=== PATIENT | male | born 1935 | race Caucasian/White ===

== ENCOUNTER 2018-10-23 10:06 | Emergency (ER) | payer MEDICARE, OTHER ==
[~2018-10-23] VITALS: Ht 180.3 cm; Wt 86.5 kg
--- NOTE | 2018-10-23 10:44 | NUR ---
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 STEADY UPON AMBULATION TO DC DESK.
--- NOTE | 2018-10-23 10:50 | NUR ---
PT C/O LLQ ABD PAIN WHERE OSTOMY IS LOCATED. PT REPORTS DECREASED OUTPUT SINCE LAST NOC WHEN IT WAS EMPTIED. PT ONLY HAD TOAST AT 0700. PT HAS HX OF COLRECTAL CA, CA FREE FOR 6 YEARS. PT HAS POWERPORT ON RIGHT SIDE OF CHEST. CHART UP FOR MD. +NAUSEA, NO VOMITING.
[2018-10-23] MEDS ORDERED: UNKNOWN BP MED PO (10:54)
--- NOTE | 2018-10-23 11:50 | NUR ---
IV STARTED. PT UPDATED ON POC. WAITING FOR LAB RESULTS PRIOR TO CT.
[2018-10-23 12:22] LABS: BASOPHILS # (AUTO) 0.01 x10^3/uL (0-0.1); BASOPHILS % (AUTO) 0 % (0-1); EOSINOPHILS # (AUTO) 0.01 x10^3/uL (0-0.4); EOSINOPHILS % (AUTO) 0 % (1-7); LYMPHOCYTES # (AUTO) 0.37 x10^3/uL (1-3.4); LYMPHOCYTES % (AUTO) 3 % (22-44); MD NO; MEAN CORPUSCULAR HEMOGLOBIN 32.3 pg (27.5-34.5); MEAN CORPUSCULAR VOLUME 97.7 fL (81-97); MEAN PLATELET VOLUME 8.1 fL (7.4-10.4); MONOCYTES # (AUTO) 0.66 x10^3/uL (0.2-0.8); MONOCYTES % (AUTO) 5 % (2-9); NEUTROPHILS # (AUTO) 13.65 x10^3/uL (1.8-6.8); NEUTROPHILS % (AUTO) 93 % (42-75); PLATELET COUNT 194 x10^3/uL (130-400); RED BLOOD COUNT 4.28 x10^6/uL (4.38-5.82); RED CELL DISTRIBUTION WIDTH 13.6 % (9.4-14.8)
[2018-10-23 12:27] LABS: ALANINE AMINOTRANSFERASE 23 U/L (12-78); ALBUMIN 3.8 g/dL (3.4-5.0); ANION GAP 8 mmol/L (5-15); CALCIUM 9.4 mg/dL (8.5-10.1); CHLORIDE 112 mmol/L (98-107); CREATININE 1.74 mg/dL (0.7-1.3)
[2018-10-23 12:31] LABS: ALKALINE PHOSPHATASE 83 U/L (45-117); TOTAL PROTEIN 8.1 g/dL (6.4-8.2); TROPONIN I < 0.015 ng/mL (0.000-0.045)
--- NOTE | 2018-10-23 13:04 | NUR ---
CT CALLED AND NOTIFIED OF PT'S CREATININE BEING TOO HIGH FOR CONTRAST. DR. RUTH TO REOEDER WITHOUT CONTRAST.
--- NOTE | 2018-10-23 13:23 | NUR ---
PT TO CT.
[2018-10-23] MEDS ORDERED: SODIUM CHLORIDE 0.9% 1,000ML IVBOLUS ONE (13:30)
[2018-10-23 14:38] VITALS: BP 129/85
== END 2018-10-23 14:41 | disposition home or self-care (01) ==
LOC: ED 11:34
DX: N13.2 Hydronephrosis with renal and ureteral calculous obstruction (principal); R10.12 Left upper quadrant pain; R10.32 Left lower quadrant pain; Z85.038 Personal history of other malignant neoplasm of large intestine
CPT/HCPCS: 36415; 71045; 74176; 80053; 83605; 83690; 84484; 85025; 93005; 99284; J7030

== ENCOUNTER 2018-12-13 07:13 | Emergency (ER) | payer MEDICARE, OTHER ==
[~2018-12-13] VITALS: Ht 185.4 cm; Wt 85.6 kg
[2018-12-13 07:24] VITALS: BP 127/67
== END 2018-12-13 08:05 | disposition home or self-care (01) ==
LOC: ED 08:00
DX: L03.116 Cellulitis of left lower limb (principal); M79.671 Pain in right foot
CPT/HCPCS: 99283

== ENCOUNTER → 2019-07-06 | Outpatient (CLI) | payer MEDICARE, OTHER ==
[~2019-07-06] MED LIST: LISI5TAB7 PO; UNKNOWN BP MED PO
== END | disposition home or self-care (01) ==
LOC: CFH 13:35
PROVIDERS: ATTEND Internal Medicine Hematology & Oncology
DX: C18.9 Malignant neoplasm of colon, unspecified (principal); I82.402 Acute embolism and thrombosis of unspecified deep veins of left lower extremity; I82.502 Chronic embolism and thrombosis of unspecified deep veins of left lower extremity; R22.43 Localized swelling, mass and lump, lower limb, bilateral

== ENCOUNTER 2020-02-15 10:21 | Outpatient (CLI) | payer MEDICARE, OTHER | END 2020-02-15 23:59 | disposition home or self-care (01) | LOC: CFH 10:21 | PROVIDERS: ATTEND Internal Medicine | DX: N20.0 Calculus of kidney (principal); I71.4 Abdominal aortic aneurysm, without rupture; N18.3 Chronic kidney disease, stage 3 (moderate) | CPT/HCPCS: 76770 ==

== ENCOUNTER 2020-07-25 10:27 | Outpatient (CLI) | payer MEDICARE, OTHER ==
[~2020-07-25 10:27] MED LIST changes: +ACID1TAB7 PO
[2020-07-25 12:30] LABS: MICROSCOPIC INDICATED
[2020-07-25] MEDS ORDERED: ACET325T14 PO (12:32)
== END 2020-07-25 23:59 | disposition home or self-care (01) ==
LOC: STAR 10:27
PROVIDERS: ATTEND Urology
DX: Z01.812 Encounter for preprocedural laboratory examination (principal); Z20.822 Contact with and (suspected) exposure to COVID-19; N20.0 Calculus of kidney
CPT/HCPCS: 81001; 87086; 93005; U0003

== ENCOUNTER 2020-07-31 13:51 | Observation (INO) | payer MEDICARE, OTHER ==
[~2020-07-31] VITALS: Ht 180.3 cm; Wt 77.0 kg
[~2020-07-31 13:51] MED LIST changes: +ACET325T14 PO; +ACETAMINOPHEN 325 MG TABLET PO PRN; +EPHEDRINE 50 MG/ML, 1ML IVPush PRN; +FENTANYL PF 100 MCG/2ML IV PRN; +HYDROmorphone 1 MG/ML, 1ML INJ IVPush PRN; +LABETALOL 5MG/ML, 20ML IV PRN; +ONDANSETRON 2MG/ML, 2ML IVPush PRN; +OXYcodone 5 MG/5 ML ORAL.SOL UDC PO PRN; +PROMETHAZINE 25 MG/ML, 1ML IVPush PRN; +hydrALAzine 20 MG/ML, 1ML IV PRN
[2020-07-31] MEDS ORDERED: CHLORHEXIDINE 15 ML UDC ONE (14:09)
[2020-07-31 14:28] VITALS: BP 170/82
[2020-07-31] MEDS ORDERED: FENTANYL PF 100 MCG/2ML ONE (14:28)
[2020-07-31] MEDS ORDERED: LACTATED RINGERS 1,000 ML IV SCH (14:30)
[2020-07-31] MEDS ORDERED: ONDANSETRON 2MG/ML, 2ML ONE (14:48)
[2020-07-31] MEDS ORDERED: CEFAZOLIN 1,000 MG ONE (14:48)
[2020-07-31] MEDS ORDERED: PROPOFOL 10 MG/ML, 20ML ONE (14:48)
[2020-07-31] MEDS ORDERED: DEXAMETHASONE 4 MG/ML, 1ML ONE (14:48)
[2020-07-31] MEDS ORDERED: LIDOCAINE-MPF 2% ,5ML ONE (14:49)
[2020-07-31] MEDS ORDERED: EPHEDRINE 50 MG/ML, 1ML ONE (14:52)
[2020-07-31] MEDS ORDERED: OMNIPAQUE 350 MG/ML, 50 ML BOTTLE ONE (15:13)
[2020-07-31] MEDS ORDERED: OXYcodone/APAP 5/325MG TABLET PO PRN (17:00)
[2020-07-31] MEDS ORDERED: ONDANSETRON 2MG/ML, 2ML IV PRN (17:00)
[2020-07-31 18:34] VITALS: BP 162/70
[2020-07-31] MEDS: POTASSIUM CHLORIDE 20 MEQ in SODIUM CHLORIDE 0.45% 1,000 ML IV SCH (19:54)
[2020-08-01 00:22] VITALS: BP 130/59
[2020-08-01 03:41] VITALS: BP 132/65
[2020-08-01 06:53] VITALS: BP 143/60
[2020-08-01] MEDS: POTASSIUM CHLORIDE 20 MEQ in SODIUM CHLORIDE 0.45% 1,000 ML IV SCH (11:51)
[2020-08-01 12:48] VITALS: BP_SYST 151; BP_SYST 167; BP_DIAS 68; BP_DIAS 69
[2020-08-01 12:57] VITALS: BP 151/68
== END 2020-08-01 14:20 | disposition home or self-care (01) ==
LOC: OR 13:51 → ORIP 16:42 → 4NE 17:52 → DCLOUNGE 08-01 14:14
PROVIDERS: ADMIT Urology; ATTEND Urology
DX: N21.0 Calculus in bladder (principal); N20.0 Calculus of kidney; N40.0 Benign prostatic hyperplasia without lower urinary tract symptoms; I10 Essential (primary) hypertension; R31.29 Other microscopic hematuria; Z87.442 Personal history of urinary calculi; Z79.899 Other long term (current) drug therapy; Z87.891 Personal history of nicotine dependence; Z85.038 Personal history of other malignant neoplasm of large intestine
CPT/HCPCS: 52317; 52356; 74420; 82360; 88300; 96360; 96361; C1769; C2617; G0378; J0690; J1100; J2405; J2704; J3010; J3480; J3490; J7120; Q9967

== ENCOUNTER → 2020-08-04 | Outpatient (CLI) | payer MEDICARE, OTHER ==
[~2020-08-04] MED LIST changes: -ACETAMINOPHEN 325 MG TABLET PO PRN; -EPHEDRINE 50 MG/ML, 1ML IVPush PRN; -FENTANYL PF 100 MCG/2ML IV PRN; -HYDROmorphone 1 MG/ML, 1ML INJ IVPush PRN; -LABETALOL 5MG/ML, 20ML IV PRN; -ONDANSETRON 2MG/ML, 2ML IVPush PRN; -OXYcodone 5 MG/5 ML ORAL.SOL UDC PO PRN; -PROMETHAZINE 25 MG/ML, 1ML IVPush PRN; -hydrALAzine 20 MG/ML, 1ML IV PRN
== END | disposition home or self-care (01) ==
LOC: CFH 09:33
PROVIDERS: ATTEND Physician Assistant
DX: N20.0 Calculus of kidney (principal)
CPT/HCPCS: 74018